=== PATIENT | male | born 1975 | race Caucasian/White ===

== ENCOUNTER 2017-02-12 09:41 | Inpatient (IN) | payer OTHER ==
[2017-02-12 10:13] VITALS: BMI 26.3
--- NOTE | 2017-02-12 11:21 | HP ---
COWS - Scale Resting Pulse: 0= [place] 80 or Below Sweatin=Flushed/Facial Moisture Restless Observation: 1= Difficult to Sit Still Pupil Size: 1= Pupils >than Normal Bone or Joint Aches: 1= Mild Discomfort Runny Nose/ Eye Tearin= Runny Nose/Eyes GI Upset > 30mins: 3= Vomiting/Diarrhea Tremor Observation: 2= Slight Tremor Visible Yawning Observation: 1= 1-2x During Session Anxiety or Irritability: 2=Irritable/Anxious Goose Flesh Skin: 0=Smooth Skin COWS Score: 15 Admission ROS S - HPI Chief Complaint: "I am here to Detox from Heroin." Allergies/Adverse Reactions: Allergies Allergy/AdvReac Type Severity Reaction Status Date / Time No Known Allergies Allergy Verified 08/16/16 10:49 History of Present Illness: Pt. is a 41 YO male here to Detox from Heroin. Pt. has had several previous detox admissions at [facility]. Exam Limitations: No Limitations - Ebola screening Have you traveled outside of the country in the last 21 days: No Have you had contact with anyone from an Ebola affected area: No Have you been sick,other than usual withdrawal symptoms: No Do you have a fever: No - Review of Systems Constitutional: Diaphoresis, Loss of Appetite, Malaise, Night Sweats, Changes in sleep, Unintentional Wgt. Loss EENT: reports: Nose Congestion, Sinus Pressure Respiratory: reports: No Symptoms reported Cardiac: reports: Lightheadedness, Palpitations GI: reports: Diarrhea, Nausea, Vomiting, Indigestion, Abdominal cramping : reports: No Symptoms Reported Musculoskeletal: reports: Back Pain Integumentary: reports: No Symptoms Reported Neuro: reports: Tremors Endocrine: reports: No Symptoms Reported Hematology: reports: No Symptoms Reported Psychiatric: reports: Judgement Intact, Mood/Affect Appropiate, Orientated x3, Anxious Other Systems: Reviewed and Negative Patient History - Patient Medical History Hx Anemia: No Hx Asthma: No Hx Chronic Obstructive Pulmonary Disease (COPD): No Hx Cancer: No Hx Cardiac Disorders: No Hx Congestive Heart Failure: No Hx Hypertension: No Hx Hypercholesterolemia: No Hx Pacemaker: No HX Cerebrovascular Accident: No Hx Seizures: No Hx Dementia: No Hx Diabetes: No Hx Gastrointestinal Disorders: No Hx Liver Disease: No Hx Genitourinary Disorders: No Hx Sexually Transmitted Disorders: No Hx Renal Disease (ESRD): No Hx Thyroid Disease: No Hx Human Immunodeficiency Virus (HIV): No (NEGATIVE HX; Last Tested: Approx. 6 months ago.) Hx Hepatitis C: No (Last Tested: Approx. 6 months ago: NEGATIVE.) Hx Depression: No Hx Suicide Attempt: No (PATIENT DENIES CURRENT SI / HI.) Hx Bipolar Disorder: No Hx Schizophrenia: No - Patient Surgical History Past Surgical History: No Hx Neurologic Surgery: No Hx Cataract Extraction: No Hx Cardiac Surgery: No Hx Lung Surgery: No Hx Breast Surgery: No Hx Breast Biopsy: No Hx Abdominal Surgery: No Hx Appendectomy: No Hx Cholecystectomy: No Hx Genitourinary Surgery: No Hx Section: No Hx Orthopedic Surgery: No Anesthesia Reaction: No - PPD History Previous Implant?: Yes Documented Results: Negative w/proof Implanted On Prior [facility] Admission?: Yes Date: 03/07/16 Results: 0 mm PPD to be Administered?: No - Reproductive History Patient is a Female of Child Bearing Age (11 -55 yrs old): No (PATIENT IS MALE.) - Smoking Cessation Smoking history: Current every day smoker Have you smoked in the past 12 months: Yes Aproximately how many cigarettes per day: 20 Cigars Per Day: 0 Hx Chewing Tobacco Use: No Initiated information on smoking cessation: Yes 'Breaking Loose' booklet given: 02/12/17 (GIVEN ON UNIT.) - Substance & Tx. History Hx Alcohol Use: No Hx Substance Use: Yes Substance Use Type: Heroin Hx Substance Use Treatment: Yes (Previous Detox admissions at [facility].) - Substances Abused Heroin Route: Inhalation Frequency: Daily Amount used: 2 bundles Age of first use: 38 Date of Last Use: 02/12/17 Family Disease History - Family Disease History Family Disease History: Diabetes: Mother, Sister Admission Physical Exam BHS - Vital Signs Vital Signs: Vital Signs - 24 hr 02/12/17 10:11 Temperature 98.1 F Pulse Rate 75 Respiratory 18 Rate Blood Pressure 117/70 - Physical General Appearance: Yes: No Apparent Distress, Nourished, Appropriately Dressed , Tremorous, Sweating, Anxious HEENTM: Yes: Hearing grossly Normal, Normocephalic, Normal Voice, LENIN, Pharynx Normal Respiratory: Yes: Chest Non-Tender, Lungs Clear, No Respiratory Distress Neck: Yes: No masses,lesions,Nodules, Supple, Trachea in good position Breast: Yes: Breast Exam Deferred Cardiology: Yes: Regular Rhythm, Regular Rate, S1, S2 Abdominal: Yes: Normal Bowel Sounds, Non Tender, Flat, Soft Genitourinary: Yes: Within Normal Limits Back: Yes: Decreased Range of Motion Musculoskeletal: Yes: Gait Steady Extremities: Yes: Normal Range of Motion, Non-Tender, Tremors Neurological: Yes: Fully Oriented, Alert, Normal Mood/Affect, Normal Response Integumentary: Yes: Normal Color, Warm Lymphatic: Yes: Within Normal Limits - Diagnostic (1) Nicotine dependence Current Visit: Yes Status: Chronic Qualifiers: Nicotine product type: cigarettes Substance use status: uncomplicated Qualified Code(s): F17.210 - Nicotine dependence, cigarettes, uncomplicated (2) Opioid dependence with withdrawal Current Visit: Yes Status: Acute Cleared for Admission [facility] - Detox or Rehab [facility] Level of Care: Medically Managed Detox Regimen/Protocol: Methadone [facility] Breath Alcohol Content Breath Alcohol Content: 0 Urine Drug Screen - Results Drug Screen Negative: No Urine Drug Screen Results: OPI-Opiates, OXY-Oxycodone
[2017-02-12] MEDS ORDERED: MAGNESIUM CITRATE 300 ML BOTTLE PO PRN (11:36)
[2017-02-12] MEDS ORDERED: diphenhydrAMINE HCL 50 MG CAPSULE PO PRN (11:36)
[2017-02-12] MEDS ORDERED: NICOTINE POLACRILEX 2 MG GUM BUC PRN (11:36)
[2017-02-12] MEDS ORDERED: hydrOXYzine PAMOATE 50 MG CAPSULE (FP) PO PRN (11:36)
[2017-02-12] MEDS ORDERED: ACETAMINOPHEN 325 MG TABLET (FP) PO PRN (11:36)
[2017-02-12] MEDS ORDERED: MENTHOL/PHENOL 1 EACH UD MM PRN (11:36)
[2017-02-12] MEDS ORDERED: MAG HYDROX/AL HYDROX/SIMETH 30 ML UNIT-DOSE CUP PO PRN (11:36)
[2017-02-12] MEDS ORDERED: guaiFENesin/D-METHORPHAN HB 10 ML UNIT-DOSE CUPS PO PRN (11:36)
[2017-02-12] MEDS ORDERED: MAGNESIUM HYDROX 2400MG/30ML ORAL SUSPENSION 30 ML CUP PO PRN (11:36)
[2017-02-12] MEDS ORDERED: IBUPROFEN 400 MG TABLET (FP) PO PRN (11:36)
[2017-02-12] MEDS ORDERED: P-EPHED 60MG/TRIPROLIDI 2.5MG TABLET PO PRN (11:36)
[2017-02-12] MEDS ORDERED: LOPERAMIDE HCL 2 MG CAPSULE PO PRN (11:36)
[2017-02-12] MEDS ORDERED: METHADONE HCL 10 MG TABLET (FOR DETOX USE ONLY) PO ONE ×2 (13:30→23:00)
[2017-02-12] MEDS: diazePAM 5 MG TABLET PO PRN ×2 (13:46→22:41)
[2017-02-12] MEDS: NICOTINE 21 MG/24 HOURS TOPICAL PATCH TD SCH (13:54)
--- NOTE | 2017-02-12 17:18 | EKG ---
Test Reason : Blood Pressure : / mmHG Vent. Rate : 064 BPM Atrial Rate : 064 BPM P-R Int : 118 ms QRS Dur : 100 ms QT Int : 396 ms P-R-T Axes : 070 075 057 degrees QTc Int : 408 ms NORMAL SINUS RHYTHM NORMAL ECG NO PREVIOUS ECGS AVAILABLE Confirmed by PAO RAMEY MD ([id number]) on 02/12/2017 5:17:28 PM Referred By: Confirmed By:PAO RAMEY MD
[2017-02-12 20:08] LABS: URINE APPEARANCE CLEAR; URINE BILIRUBIN NEGATIVE (NEGATIVE); URINE BLOOD NEGATIVE (NEGATIVE); URINE COLOR YELLOW; URINE GLUCOSE (UA) NEGATIVE (NEGATIVE); URINE KETONE NEGATIVE (NEGATIVE); URINE LEUK ESTERASE NEGATIVE (NEGATIVE); URINE NITRITE NEGATIVE (NEGATIVE); URINE PROTEIN NEGATIVE (NEGATIVE); URINE UROBILINOGEN NEGATIVE E.U./dl (0.2-1.0)
[2017-02-12] MEDS: THIAMINE HCL 100 MG TABLET (FP) PO SCH (22:41)
[2017-02-13] MEDS ORDERED: TRIMETHOBENZAMIDE HCL 200MG/2ML INJ IM PRN (07:06)
[2017-02-13] MEDS ORDERED: METHADONE HCL 10 MG TABLET (FOR DETOX USE ONLY) PO ONE (10:00)
[2017-02-13 10:06] LABS: MCH 29.3 pg (25.7-33.7); MCHC 33.3 g/dl (32.0-35.9); MEAN CELL VOLUME 88.2 fl (80-96); MEAN PLT VOLUME 8.6 fl (7.5-11.1); PLATELET COUNT 344 K/MM3 (134-434); RDW 13.3 % (11.9-15.9); WHITE BLOOD COUNT 12.5 K/mm3 (4.0-10.0)
[2017-02-13] MEDS: diazePAM 5 MG TABLET PO PRN (10:09)
[2017-02-13] MEDS: PRENATAL VITAMINS W/ FOLIC ACID TABLET (FP) PO SCH (10:09)
[2017-02-13] MEDS: NICOTINE 21 MG/24 HOURS TOPICAL PATCH TD SCH (10:09)
[2017-02-13 10:42] LABS: ALBUMIN 3.9 g/dl (3.4-5.0); ALK PHOS 99 U/L (45-117); ANION GAP 13 (8-16); BILIRUBIN,TOTAL 0.4 mg/dL (0.2-1.0); CALCIUM 9.5 mg/dL (8.5-10.1); CO2 26 mmol/L (21-32); COCKROFT - GAULT 118.67; CREATININE 0.9 mg/dL (0.7-1.3); GLUCOSE,RANDOM 125 mg/dL (74-106); SGOT/AST 21 U/L (15-37); SGPT/ALT 35 U/L (12-78); TOT PROT 7.8 g/dl (6.4-8.2)
[2017-02-13] MEDS ORDERED: CYCLOBENZAPRINE HCL 10 MG TABLET (FP) PO PRN (10:54)
--- NOTE | 2017-02-13 11:00 | PN ---
S COWS - Scale Resting Pulse: 4= [place] > 121 Sweatin=Flushed/Facial Moisture Restless Observation: 3= Extraneous Movement Pupil Size: 1= Pupils >than Normal Bone or Joint Aches: 2= Severe Diffuse Aches Runny Nose/ Eye Tearin= Runny Nose/Eyes GI Upset > 30mins: 3= Vomiting/Diarrhea Tremor Observation of Outstretched Hands: 2= Slight Tremor Visible Yawning Observation: 1= 1-2x During Session Anxiety or Irritability: 2=Irritable/Anxious Goose Flesh Skin: 0=Smooth Skin COWS Score: 22 S Progress Note (SOAP) Subjective: ALERT,IRRITABLE,ANXIOUS,INTERRUPTED SLEEP,TREMOR,PAIN IN THE BODY AND BACK, SWEATING Objective: 02/13/17 10:57 Vital Signs Temperature 99.3 F 02/13/17 09:46 Pulse Rate 122 H 02/13/17 09:46 Respiratory Rate 18 02/13/17 09:46 Blood Pressure 129/80 02/13/17 09:46 O2 Sat by Pulse Oximetry (%) EKG NSR,NORMAL ECG Laboratory Last Values WBC 12.5 K/mm3 (4.0-10.0) H D 02/13/17 08:00 RBC 5.46 M/mm3 (4.00-5.60) 02/13/17 08:00 Hgb 16.0 GM/dL (11.7-16.9) 02/13/17 08:00 Hct 48.1 % (35.4-49) 02/13/17 08:00 MCV 88.2 fl (80-96) 02/13/17 08:00 MCHC 33.3 g/dl (32.0-35.9) 02/13/17 08:00 RDW 13.3 % (11.9-15.9) 02/13/17 08:00 Plt Count 344 K/MM3 (134-434) 02/13/17 08:00 MPV 8.6 fl (7.5-11.1) 02/13/17 08:00 Sodium 140 mmol/L (136-145) 02/13/17 08:00 Potassium 4.0 mmol/L (3.5-5.1) 02/13/17 08:00 Chloride 101 mmol/L (98-107) 02/13/17 08:00 Carbon Dioxide 26 mmol/L (21-32) 02/13/17 08:00 Anion Gap 13 (8-16) 02/13/17 08:00 BUN 18 mg/dL (7-18) D 02/13/17 08:00 Creatinine 0.9 mg/dL (0.7-1.3) 02/13/17 08:00 Creat Clearance w eGFR > 60 (>60) 02/13/17 08:00 Random Glucose 125 mg/dL (74-106) H D 02/13/17 08:00 Calcium 9.5 mg/dL (8.5-10.1) 02/13/17 08:00 Total Bilirubin 0.4 mg/dL (0.2-1.0) D 02/13/17 08:00 AST 21 U/L (15-37) 02/13/17 08:00 ALT 35 U/L (12-78) 02/13/17 08:00 Alkaline Phosphatase 99 U/L (45-117) D 02/13/17 08:00 Total Protein 7.8 g/dl (6.4-8.2) 02/13/17 08:00 Albumin 3.9 g/dl (3.4-5.0) 02/13/17 08:00 Urine Color Yellow 02/12/17 19:53 Urine Appearance Clear 02/12/17 19:53 Urine pH 5.0 (5.0-8.0) 02/12/17 19:53 Ur Specific [place] 1.026 (1.001-1.035) 02/12/17 19:53 Urine Protein Negative (NEGATIVE) 02/12/17 19:53 Urine Glucose (UA) Negative (NEGATIVE) 02/12/17 19:53 Urine Ketones Negative (NEGATIVE) 02/12/17 19:53 Urine Blood Negative (NEGATIVE) 02/12/17 19:53 Urine Nitrite Negative (NEGATIVE) 02/12/17 19:53 Urine Bilirubin Negative (NEGATIVE) 02/12/17 19:53 Urine Urobilinogen Negative E.U./dl (0.2-1.0) 02/12/17 19:53 Ur Leukocyte Esterase Negative (NEGATIVE) 02/12/17 19:53 LABS PENDING Assessment: 02/13/17 10:59 WITHDRAWAL SYMPTOM Plan: ENCOURAGE ORAL FLUID,WBC 12.5,GLUCOSE 125,REPEAT CBC IN AM,BGM MONITORING
[2017-02-13] MEDS ORDERED: CYCLOBENZAPRINE HCL 10 MG TABLET (FP) PO ONE (11:22)
[2017-02-13] MEDS ORDERED: cloNIDine HCL 0.1 MG TABLET PO ONE (11:23)
[2017-02-13] MEDS: THIAMINE HCL 100 MG TABLET (FP) PO SCH (22:52)
[2017-02-13] MEDS: cloNIDine HCL 0.1 MG TABLET PO SCH (22:52)
[2017-02-14 09:48] VITALS: BP 123/60; PULSE 103; TEMP 99.5
[2017-02-14] MEDS ORDERED: METHADONE HCL 5 MG TABLET (FOR DETOX USE ONLY) PO ONE (10:00)
[2017-02-14] MEDS ORDERED: ONDANSETRON *ODT* 4 MG TABLET SL PRN (10:10)
--- NOTE | 2017-02-14 10:10 | PN ---
BHS COWS - Scale Resting Pulse: 2= [place] 101-120 Sweatin= Chills/Flushing Restless Observation: 3= Extraneous Movement Pupil Size: 1= Pupils >than Normal Bone or Joint Aches: 2= Severe Diffuse Aches Runny Nose/ Eye Tearin= Runny Nose/Eyes GI Upset > 30mins: 3= Vomiting/Diarrhea Tremor Observation of Outstretched Hands: 2= Slight Tremor Visible Yawning Observation: 1= 1-2x During Session Anxiety or Irritability: 2=Irritable/Anxious Goose Flesh Skin: 0=Smooth Skin COWS Score: 19 BHS Progress Note (SOAP) Subjective: ALERT,IRRITABLE,ANXIOUS,INTERRUPTED SLEEP,TREMOR,PAIN IN THE BODY AND BACK, NAUSEA,VOMITING Objective: 02/14/17 10:08 Vital Signs Temperature 99.5 F 02/14/17 09:47 Pulse Rate 103 H 02/14/17 09:47 Respiratory Rate 16 02/14/17 09:47 Blood Pressure 123/60 02/14/17 09:47 O2 Sat by Pulse Oximetry (%) Laboratory Last Values WBC 12.5 K/mm3 (4.0-10.0) H D 02/13/17 08:00 RBC 5.46 M/mm3 (4.00-5.60) 02/13/17 08:00 Hgb 16.0 GM/dL (11.7-16.9) 02/13/17 08:00 Hct 48.1 % (35.4-49) 02/13/17 08:00 MCV 88.2 fl (80-96) 02/13/17 08:00 MCHC 33.3 g/dl (32.0-35.9) 02/13/17 08:00 RDW 13.3 % (11.9-15.9) 02/13/17 08:00 Plt Count 344 K/MM3 (134-434) 02/13/17 08:00 MPV 8.6 fl (7.5-11.1) 02/13/17 08:00 Sodium 140 mmol/L (136-145) 02/13/17 08:00 Potassium 4.0 mmol/L (3.5-5.1) 02/13/17 08:00 Chloride 101 mmol/L (98-107) 02/13/17 08:00 Carbon Dioxide 26 mmol/L (21-32) 02/13/17 08:00 Anion Gap 13 (8-16) 02/13/17 08:00 BUN 18 mg/dL (7-18) D 02/13/17 08:00 Creatinine 0.9 mg/dL (0.7-1.3) 02/13/17 08:00 Creat Clearance w eGFR > 60 (>60) 02/13/17 08:00 POC Glucometer 119 UNITS (()) 02/14/17 07:45 Random Glucose 125 mg/dL (74-106) H D 02/13/17 08:00 Calcium 9.5 mg/dL (8.5-10.1) 02/13/17 08:00 Total Bilirubin 0.4 mg/dL (0.2-1.0) D 02/13/17 08:00 AST 21 U/L (15-37) 02/13/17 08:00 ALT 35 U/L (12-78) 02/13/17 08:00 Alkaline Phosphatase 99 U/L (45-117) D 02/13/17 08:00 Total Protein 7.8 g/dl (6.4-8.2) 02/13/17 08:00 Albumin 3.9 g/dl (3.4-5.0) 02/13/17 08:00 Urine Color Yellow 02/12/17 19:53 Urine Appearance Clear 02/12/17 19:53 Urine pH 5.0 (5.0-8.0) 02/12/17 19:53 Ur Specific [place] 1.026 (1.001-1.035) 02/12/17 19:53 Urine Protein Negative (NEGATIVE) 02/12/17 19:53 Urine Glucose (UA) Negative (NEGATIVE) 02/12/17 19:53 Urine Ketones Negative (NEGATIVE) 02/12/17 19:53 Urine Blood Negative (NEGATIVE) 02/12/17 19:53 Urine Nitrite Negative (NEGATIVE) 02/12/17 19:53 Urine Bilirubin Negative (NEGATIVE) 02/12/17 19:53 Urine Urobilinogen Negative E.U./dl (0.2-1.0) 02/12/17 19:53 Ur Leukocyte Esterase Negative (NEGATIVE) 02/12/17 19:53 RPR Titer Nonreactive (NONREACTIVE) 02/13/17 08:00 Assessment: 02/14/17 10:09 WITHDRAWAL SYMPTOM Plan: CONTINUE DETOX,BGM MONITORING BGM 119
[2017-02-14] MEDS: cloNIDine HCL 0.1 MG TABLET PO SCH (10:57)
[2017-02-14] MEDS: PRENATAL VITAMINS W/ FOLIC ACID TABLET (FP) PO SCH (10:57)
[2017-02-14] MEDS: diazePAM 5 MG TABLET PO PRN (10:57)
[2017-02-14] MEDS: NICOTINE 21 MG/24 HOURS TOPICAL PATCH TD SCH (10:57)
[2017-02-14 11:41] LABS: MCH 29.1 pg (25.7-33.7); MCHC 32.7 g/dl (32.0-35.9); MEAN CELL VOLUME 88.9 fl (80-96); MEAN PLT VOLUME 8.6 fl (7.5-11.1); PLATELET COUNT 356 K/MM3 (134-434); RDW 13.3 % (11.9-15.9); WHITE BLOOD COUNT 12.7 K/mm3 (4.0-10.0)
--- NOTE | 2017-02-14 17:21 | DS ---
[id number] Present History: Opioid Dependence Additional Comments: insists to leave the unit refuses to wait face to face with the provider aftercare as per counselor arranged no e prescription at this time Pertinent Past History: nicotine dependence - Physical Exam Results Vital Signs: Vital Signs Temperature 99.5 F 02/14/17 09:47 Pulse Rate 103 H 02/14/17 09:47 Respiratory Rate 16 02/14/17 09:47 Blood Pressure 123/60 02/14/17 09:47 O2 Sat by Pulse Oximetry (%) Pertinent Admission Physical Exam Findings: withdrawal sx Laboratory Last Values WBC 12.7 K/mm3 (4.0-10.0) H 02/14/17 07:50 RBC 5.38 M/mm3 (4.00-5.60) 02/14/17 07:50 Hgb 15.7 GM/dL (11.7-16.9) 02/14/17 07:50 Hct 47.9 % (35.4-49) 02/14/17 07:50 MCV 88.9 fl (80-96) 02/14/17 07:50 MCHC 32.7 g/dl (32.0-35.9) 02/14/17 07:50 RDW 13.3 % (11.9-15.9) 02/14/17 07:50 Plt Count 356 K/MM3 (134-434) 02/14/17 07:50 MPV 8.6 fl (7.5-11.1) 02/14/17 07:50 Sodium 140 mmol/L (136-145) 02/13/17 08:00 Potassium 4.0 mmol/L (3.5-5.1) 02/13/17 08:00 Chloride 101 mmol/L (98-107) 02/13/17 08:00 Carbon Dioxide 26 mmol/L (21-32) 02/13/17 08:00 Anion Gap 13 (8-16) 02/13/17 08:00 BUN 18 mg/dL (7-18) D 02/13/17 08:00 Creatinine 0.9 mg/dL (0.7-1.3) 02/13/17 08:00 Creat Clearance w eGFR > 60 (>60) 02/13/17 08:00 POC Glucometer 119 UNITS (()) 02/14/17 07:45 Random Glucose 125 mg/dL (74-106) H D 02/13/17 08:00 Calcium 9.5 mg/dL (8.5-10.1) 02/13/17 08:00 Total Bilirubin 0.4 mg/dL (0.2-1.0) D 02/13/17 08:00 AST 21 U/L (15-37) 02/13/17 08:00 ALT 35 U/L (12-78) 02/13/17 08:00 Alkaline Phosphatase 99 U/L (45-117) D 02/13/17 08:00 Total Protein 7.8 g/dl (6.4-8.2) 02/13/17 08:00 Albumin 3.9 g/dl (3.4-5.0) 02/13/17 08:00 Urine Color Yellow 02/12/17 19:53 Urine Appearance Clear 02/12/17 19:53 Urine pH 5.0 (5.0-8.0) 02/12/17 19:53 Ur Specific [place] 1.026 (1.001-1.035) 02/12/17 19:53 Urine Protein Negative (NEGATIVE) 02/12/17 19:53 Urine Glucose (UA) Negative (NEGATIVE) 02/12/17 19:53 Urine Ketones Negative (NEGATIVE) 02/12/17 19:53 Urine Blood Negative (NEGATIVE) 02/12/17 19:53 Urine Nitrite Negative (NEGATIVE) 02/12/17 19:53 Urine Bilirubin Negative (NEGATIVE) 02/12/17 19:53 Urine Urobilinogen Negative E.U./dl (0.2-1.0) 02/12/17 19:53 Ur Leukocyte Esterase Negative (NEGATIVE) 02/12/17 19:53 RPR Titer Nonreactive (NONREACTIVE) 02/13/17 08:00 lab noted - Treatment Hospital Course: Detox Protocol Followed, Responded well - Medication Discharge Medications: Ambulatory Orders NK [No Known Home Medication] 03/05/16 - Diagnosis (1) Opioid dependence with withdrawal Status: Acute (2) Nicotine dependence Status: Acute Qualifiers: Nicotine product type: cigarettes Substance use status: in withdrawal Qualified Code(s): F17.213 - Nicotine dependence, cigarettes, with withdrawal - AMA Did Patient Leave Against Medical Advice: Yes
[2017-02-15] MEDS ORDERED: METHADONE HCL 5 MG TABLET (FOR DETOX USE ONLY) PO ONE (10:00)
[2017-02-16] MEDS ORDERED: METHADONE HCL 10 MG TABLET (FOR DETOX USE ONLY) PO ONE (10:00)
[2017-02-17] MEDS ORDERED: METHADONE HCL 5 MG TABLET (FOR DETOX USE ONLY) PO ONE (06:00)
== END 2017-02-14 17:10 | disposition left against medical advice (07) | DRG 770 ==
LOC: YASAS 09:41 → Y6N 11:42
PROVIDERS: ADMIT Internal Medicine; ATTEND Internal Medicine Addiction Medicine
PROC: HZ2ZZZZ Detoxification Services for Substance Abuse Treatment (ICD-10-PCS; principal; 2017-02-14)
DX: F11.23 Opioid dependence with withdrawal (principal); F17.210 Nicotine dependence, cigarettes, uncomplicated
CPT/HCPCS: 36415; 80053; 81003; 85027; 86593; 93005; 93010